=== PATIENT | female | born 1950 | race Two or more races ===

== ENCOUNTER 2018-04-11 14:52 | Outpatient (CLI) | payer OTHER | END 2018-04-11 15:14 | disposition home or self-care (01) | LOC: TOM 14:52 | DX: A37.10 Whooping cough due to Bordetella parapertussis without pneumonia (principal); R05 Cough ==

== ENCOUNTER 2019-01-23 11:20 | Outpatient (CLI) | payer OTHER | END 2019-01-23 15:36 | disposition home or self-care (01) | LOC: TOM 11:20 | DX: J45.909 Unspecified asthma, uncomplicated (principal); J32.8 Other chronic sinusitis; M19.90 Unspecified osteoarthritis, unspecified site ==

== ENCOUNTER 2021-11-30 11:37 | Outpatient (CLI) | payer OTHER | END 2021-11-30 12:13 | disposition home or self-care (01) | LOC: RAD 11:37 | PROVIDERS: ATTEND Ophthalmology | DX: Z01.818 Encounter for other preprocedural examination (principal) ==

== ENCOUNTER 2023-04-12 14:07 | Outpatient (CLI) | payer OTHER | END 2023-04-12 14:15 | disposition home or self-care (01) | LOC: RAD 14:07 | PROVIDERS: ATTEND Internal Medicine | DX: M25.511 Pain in right shoulder (principal) ==

== ENCOUNTER → 2023-04-14 | Outpatient (CLI) | payer OTHER | END | disposition home or self-care (01) | LOC: SONOGRAMA 09:29 | PROVIDERS: ATTEND Internal Medicine | DX: M25.511 Pain in right shoulder (principal) ==

== ENCOUNTER 2023-04-28 10:35 | Outpatient (CLI) | payer OTHER | END 2023-04-28 10:39 | disposition home or self-care (01) | LOC: TOM 10:35 | PROVIDERS: ATTEND Internal Medicine | DX: R05.8 Other specified cough (principal); R06.02 Shortness of breath ==

== ENCOUNTER 2023-09-13 10:38 | Outpatient (CLI) | payer OTHER | END 2023-09-13 10:47 | disposition home or self-care (01) | LOC: TOM 10:38 | PROVIDERS: ATTEND Internal Medicine | DX: R91.1 Solitary pulmonary nodule (principal) ==

== ENCOUNTER 2024-06-02 10:12 | Outpatient (CLI) | payer OTHER | END 2024-06-02 10:18 | disposition home or self-care (01) | LOC: RAD 10:12 | DX: R06.00 Dyspnea, unspecified (principal); R05.9 Cough, unspecified; J98.01 Acute bronchospasm ==

== ENCOUNTER 2024-07-25 12:51 | Outpatient (CLI) | payer OTHER | END 2024-07-25 12:56 | disposition home or self-care (01) | LOC: SONOGRAMA 12:51 | PROVIDERS: ATTEND Orthopaedic Surgery | DX: M25.511 Pain in right shoulder (principal) ==

== ENCOUNTER 2025-03-12 09:07 | Outpatient (CLI) | payer OTHER | END 2025-03-13 09:08 | disposition home or self-care (01) | LOC: NUCLEAR 09:07 | PROVIDERS: ATTEND Internal Medicine | DX: G31.84 Mild cognitive impairment of uncertain or unknown etiology (principal) | CPT/HCPCS: 78803; A9557 ==

== ENCOUNTER → 2025-10-06 | Emergency (ER) | payer OTHER ==
[~2025-10-06] VITALS: Ht 152.4 cm; Wt 62.1 kg
[~2025-10-06] MED LIST: ACIDO FOLICO; CRESTOR40 MG PO; PROTECT PLUS S1 EACH PO; SINGULAIR10 MG PO
== END | disposition left against medical advice (07) ==
LOC: ER 15:00
DX: Z53.21 Procedure and treatment not carried out due to patient leaving prior to being seen by health care provider (principal)